=== PATIENT | female | born 1990 | race Caucasian/White ===

== ENCOUNTER 2018-04-27 09:01 | Day surgery (SDC) | payer OTHER, SELFPAY ==
[2018-04-27 09:35] VITALS: BP 114/81; PULSE 104; RESP 16; TEMP 36.1; O2SAT 96
[2018-04-27] MEDS: Lactated Ringers 1,000 ML 30 ML IV (10:18)
--- NOTE | 2018-04-27 13:10 | ROE_ITS ---
Date of service: 04/27/18 Time of Service: 13:08 Operative Note DATE OF PROCEDURE: 04/27/18 PRE-OP DIAGNOSIS: family history of colon ca/silverman syndrome POST-OP DIAGNOSIS: same PROCEDURE: colonoscopy SURGEON: Curtis Cisneros III ANESTHESIA: MAC PATHOLOGY: none sent COMPLICATIONS: None Patient was transported to: PACU Patient's condition: stable Findings: negative screen Procedure Description: After informed consent was obtained the patient was taken to the procedure room and placed in a left decubitous position. Monitors were applied and a time out was done. The patients name, date of , procedure, allergies to medications and metal in their body was reviewed. The patient was then sedated. Once sedated and comfortable a rectal exam was done. External exam was normal. Internal exam revealed a normal sphincter tone and no palpable masses. The scope was then introduced and retrofelexed. no internal hemorrhoids were identified. The scope was then advanced to the cecum min difficulty. The TI and appendiceal orifice were identified. The prep was adequate. The scope was then slowly retracted over 10 minutes back into the rectum. No Polyps were re moved. The scope was removed and the patient was woken up and taken back to Same day surgery in stable condition. The patient tolerated the procedure well and there were no immediate complications. Follow up: The patient should follow up in 10 years unless they develop changes in bowel habits or other new gastrointestinal complaints.
--- NOTE | 2018-04-27 13:11 | W.PM.DSUDISC ---
Discharge Plan Disposition Patient Disposition: HOME Condition: Stable Discharge Details Reason For Visit: screening Attending Provider: Curtis Cisneros III Primary Care Provider: Corrie Sanz Home Meds and New Rx's Prescriptions: Continued Necon 0.5/35 (28) 0.5-35 mg-mcg tablet 1 tab PO DAILY RF: 0 alprazolam [Xanax] 1 mg tablet 1 mg PO PRN RF: 0 bisacodyl [Dulcolax (bisacodyl)] 5 mg tablet,delayed release (DR/EC) 5 mg PO ONCE Qty: 4 RF: 0 polyethylene glycol 3350 17 gram/dose powder 255 g PO ONCE Qty: 255 RF: 0 Discharge Instructions Referrals: Curtis Cisneros III, DO [OSTEOPATHIC DOCTOR] - 04/30/18 12:00 am Activity:: Activity as Tolerated Diet:: As Tolerated Discharge Orders Discharge Orders: Discharge Order (Routine); Ordered 04/27/18 Ordered By: Curtis Cisneros III DS: Diagnosis 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
[2018-04-27 13:40] VITALS: BP 109/80; PULSE 85; RESP 16; TEMP 36.6; O2SAT 100
== END 2018-04-27 14:09 | disposition home or self-care (01) ==
PROVIDERS: PCP Family Medicine; Visit Provider Surgery
PROC: 0DJD8ZZ Inspection of Lower Intestinal Tract, Via Natural or Artificial Opening Endoscopic (ICD-10-PCS; CPT 45378; principal; 2018-04-27 10:30)
DX: Z12.11 Encounter for screening for malignant neoplasm of colon (principal); Z15.09 Genetic susceptibility to other malignant neoplasm; Z80.0 Family history of malignant neoplasm of digestive organs
CPT/HCPCS: 45378; 81025